=== PATIENT | female | born 1980 | race Caucasian/White ===

== ENCOUNTER 2018-04-02 16:56 | Emergency (ER) | payer MEDICAID, OTHER ==
[~2018-04-02] VITALS: Ht 175.3 cm; Wt 99.8 kg
[~2018-04-02 16:56] MED LIST: CITA-36 PO; HYDR-531 PO; HYDR10TA PO; LAMO25TA27 PO; LISI10TA6 PO; PREG50CA PO; TIZA2CAP7 PO
[2018-04-02 18:21] LABS: Basophils # (auto) 0 uL; Basophils % (auto) 0.2 % (0.0-2.0); Eosinophils # (auto) 0 uL; Eosinophils % (auto) 0.6 % (0.0-7.0); Hemoglobin 13.6 g/dL (12.2-16.2); Lymphocytes # (auto) 1.2 uL; Lymphocytes % (auto) 17.8 % (10.0-50.0); Mean Corpuscular Hemoglobin 31.9 pg (28.0-32.0); Mean Corpuscular Volume 93.8 fL (80.0-100.0); Monocytes # (auto) 0.5 uL; Monocytes % (auto) 6.9 % (0.0-12.0); Neutrophils % (auto) 74.5 % (37.0-80.0); Nucleated Red Blood Cells % 0.1 %; Platelet Count (auto) 216 10^3/uL (140-450); Red Blood Cells 4.26 10^6/uL (4.0-5.20); Red Cell Distribution Width 14.2 % (11.8-14.3); White Blood Cell 6.8 10^3/uL (4.4-10.8)
[2018-04-02 18:42] VITALS: BP 154/84
== END 2018-04-02 19:30 | disposition home or self-care (01) ==
LOC: ER 16:58
DX: O20.0 Threatened abortion (principal); I10 Essential (primary) hypertension; Z88.6 Allergy status to analgesic agent; Z3A.17 17 weeks gestation of pregnancy
CPT/HCPCS: 36415; 76805; 84702; 85025

== ENCOUNTER 2018-07-21 01:55 | Emergency (ER) | payer OTHER, MEDICAID ==
[~2018-07-21] VITALS: Ht 175.3 cm; Wt 123.8 kg
[2018-07-21 02:08] VITALS: BP 160/98
[2018-07-21] MEDS ORDERED: methylPREDNISolone SOD SUCC 125 MG/2 ML VL IM ONE (04:45)
[2018-07-21] MEDS ORDERED: ALUM & MAG HYDROX-SIMETH LIQ(MAALOX) 30 ML PO ONE (04:45)
== END 2018-07-21 05:20 | disposition home or self-care (01) ==
LOC: ER 01:55
DX: O99.613 Diseases of the digestive system complicating pregnancy, third trimester (principal); K21.9 Gastro-esophageal reflux disease without esophagitis; J06.9 Acute upper respiratory infection, unspecified; O99.343 Other mental disorders complicating pregnancy, third trimester; F41.9 Anxiety disorder, unspecified; O16.3 Unspecified maternal hypertension, third trimester; Z79.899 Other long term (current) drug therapy; Z3A.33 33 weeks gestation of pregnancy; Z88.5 Allergy status to narcotic agent; Z88.8 Allergy status to other drugs, medicaments and biological substances
CPT/HCPCS: 96372; 99283; J2930